=== PATIENT | female | born 1980 | race Hispanic/Latino ===

== ENCOUNTER 2022-10-27 12:05 | Emergency (ER) | payer SELFPAY ==
--- NOTE | ~2022-10-27 | CT_ITS ---
EXAMINATION: CT abdomen pelvis wo con DATE: 10/27/2022 16:47 INDICATION: Right flank pain and dysuria TECHNIQUE: Computed tomography (CT) of the abdomen and pelvis was performed without intravenous contr ast. Automated exposure control and iterative reconstruction technique were employed. The dose-length product was 252.14 mGy-cm. COMPARISON: None FINDINGS: Lung bases are clear. Heart size is normal. There is decreased attenuation the blood pool relative to the myocardium suggesting anemia. Liver, gallbladder, spleen, pancreas, bilateral adrenal glands and left kidney are normal. There are couple nonobstructing 2-3 mm stones at the interpolar region of th e right kidney. Indeterminate 3.4 x 2.4 cm exophytic lesion at the lower pole of the right kidney wit h lobular margins and slightly greater than simple fluid attenuation. No evident stones in the left k idney or along the course of the bilateral ureters. No hydronephrosis. There are few tiny phleboliths in the pelvis. Bladder is normal. Anteverted uterus with suggestion of a section scar at th e anterior lower uterine segment and exiting transversely across suprapubic anterior pelvic wall. [place] els are unremarkable. The appendix is not visualized. No pericecal inflammatory change to suggest acu te appendicitis. Mild lower thoracic spondylosis. Mild lumbar levocurvature. IMPRESSION: 1. Couple nonobstructing 2-3 mm right renal stones. 2. Indeterminate 3.4 x 2.4 similar exophytic lesion at the lower pole of the right kidney with lobula r margins and slightly greater than simple fluid attenuation with differential including either compl ex cyst or cystic neoplasm including renal cell carcinoma. Recommend correlation with pre and postcon trast MRI or CT. Reviewed, dictated and finalized at location A. PACKER IMPRESSION: 1. Couple nonobstructing 2-3 mm right renal stones. 2. Indeterminate 3.4 x 2.4 similar exophytic lesion at the lower pole of the ri ght kidney with lobular margins and slightly greater than simple fluid attenuat ion with differential including either complex cyst or cystic neoplasm includin g renal cell carcinoma. Recommend correlation with pre and postcontrast MRI or CT.
[2022-10-27 12:08] VITALS: BP 119/65; PULSE 58; RESP 17; TEMP 36.1; O2SAT 100
[2022-10-27 16:49] LABS: Appearance Urine Clear (Clear); Bilirubin Urine Negative (Negative); Blood Urine 1+ (Negative); Color Urine Yellow (Yellow); Glucose Urine UA Negative (Negative); Ketones Urine Negative (Negative); Leukocyte Esterase Ur Negative LEU/UL (Negative); Nitrate Urine Negative (Negative); Protein Urine Negative (Negative); Specific Grav Ur 1.025 (1.001-1.035); Urobilinogen Urine 0.2 mg/dL (<2.0)
[2022-10-27 17:03] LABS: Bacteria Urine Trace /hpf; Mucus Urine Few /lpf; RBC Urine 21-50 /hpf (0-2); Squamous Epithelial Cell Urine Many /hpf (Few); WBC Urine 0-3 /hpf
[2022-10-27 17:16] LABS: Add Urine Microscopic? YES
--- NOTE | 2022-10-27 18:31 | ED.GENADULT ---
HPI - General Adult General Chief complaint: Back Pain/Injury Stated complaint: flank pain Time Seen by Provider: 10/27/22 15:10 History of Present Illness HPI narrative: Patient is a 42-year-old female whose daughter is interpreting and feels comfortable that presents to the ER with right flank pain and urinary frequency. Began today. No fevers chills or sweats. Concern for kidney stone. No dysuria. Denies fevers or chills or sweats. Cannot describe any aggravating alleviating factors for her discomfort. Review of Systems Review of Systems: All systems reviewed & are unremarkable except as noted in HPI and below Constitutional: Constitutional: Denies chills, Denies fatigue and Denies fever(s) Cardiovascular: Cardiovascular: Denies chest pain, Denies rapid heart rate and Denies radiating jaw, neck or arm pain Gastrointestinal: Gastrointestinal: Denies abdominal pain, Denies nausea and Denies vomiting Genitourinary: Genitourinary: Denies hematuria, Reports nocturia, Denies dysuria, Denies pelvic pain and Reports flank pain PMFSH Past Medical History Medical History (Updated 10/27/22 @ 19:03 by Oj Ariza MD) Healthy female adult Surgical History Surgical History (Updated 10/27/22 @ 19:03 by Oj Ariza MD) No pertinent past surgical history Exam Narrative: GENERAL: Well-appearing, well-nourished, and in no acute distress. HEAD: Normocephalic, atraumatic. CHEST: Clear to auscultation. No respiratory distress. HEART: Regular rate and rhythm. Normal peripheral pulses. ABDOMEN: Soft, nontender, nondistended. Back: No midline tenderness. Mild right CVA tenderness. EXTREMITIES: Normal range of motion. No edema. SKIN: Warm, dry, no rash. NEURO: Alert and oriented x3. PSYCH: Normal mood and affect. Course Course Emergency Course: Patient resting comfortably. Discussed case with Dr. Hull who would like the patient follow-up outpatient. Patient aware of diagnosis and treatment plan. Vital Signs Vital signs: Vital Signs Temperature 97 F L 10/27/22 12:08 Pulse Rate 58 L 10/27/22 12:08 Respiratory Rate 17 10/27/22 12:08 Blood Pressure 119/65 10/27/22 12:08 Pulse Oximetry 100 10/27/22 12:08 Temperature 97 F L 02/03/23 12:08 Pulse Rate 58 L 10/27/22 12:08 Respiratory Rate 17 10/27/22 12:08 Blood Pressure 119/65 10/27/22 12:08 Pulse Oximetry 100 10/27/22 12:08 Medical Decision Making Vital Signs Vital Signs: Vital Signs Temperature 97 F L 10/27/22 12:08 Pulse Rate 58 L 10/27/22 12:08 Respiratory Rate 17 10/27/22 12:08 Blood Pressure 119/65 10/27/22 12:08 Pulse Oximetry 100 10/27/22 12:08 Temperature 97 F L 10/27/22 12:08 Pulse Rate 58 L 10/27/22 12:08 Respiratory Rate 17 10/27/22 12:08 Blood Pressure 119/65 10/27/22 12:08 Pulse Oximetry 100 10/27/22 12:08 Lab Data Labs: Lab Results 10/27/22 Range/Units 16:37 Urine Color Yellow (Yellow) Urine Appearance Clear (Clear) Urine pH 6.0 (5.0-9.0) Ur Specific [place] 1.025 (1.001-1.035) Urine Protein Negative (Negative) mg/dL Urine Glucose (UA) Negative (Negative) mg/dL Urine Ketones Negative (Negative) mg/dL Ur Blood (Man) 1+ H (Negative) Urine Nitrate Negative (Negative) Urine Bilirubin Negative (Negative) Urine Urobilinogen 0.2 (<2.0) mg/dL Leukocyte Esterase Rfl Negative (Negative) ELLA/UL Urine RBC 21-50 H (0-2) /hpf Urine WBC 0-3 /hpf Ur Squamous Epith Cells Many H (Few) /hpf Urine Bacteria Trace /hpf Urine Mucus Few H /lpf UCG Bedside Result Negative Reference Range: Negative Imaging Data Radiologist's impression: ITS Impressions Abdomen/Pelvis CT 10/27/22 16:50 IMPRESSION: 1. Couple nonobstructing 2-3 mm right renal stones. 2. Indeterminate 3.4 x 2.4 similar exophytic lesion at the lower pole of the r
== END 2022-10-27 19:04 | disposition home or self-care (01) ==
PROVIDERS: Emergency Provider Emergency Medicine; PCP Physician Assistant
DX: N28.89 Other specified disorders of kidney and ureter (principal); R31.29 Other microscopic hematuria; N20.0 Calculus of kidney
CPT/HCPCS: 74176; 81001; 81025; 99284